=== PATIENT | male | born 1960 | race African-American/Black ===

== ENCOUNTER 2017-12-02 22:23 | Emergency (ER) | payer SELFPAY ==
[~2017-12-02] VITALS: Ht 170.2 cm; Wt 86.2 kg
[2017-12-02] MEDS ORDERED: METFORMIN500 M2 PO (22:44)
[2017-12-02 23:21] LABS: URINE BILIRUBIN - DIPSTICK NEGATIVE (NEGATIVE); URINE BLOOD DIPSTICK NEGATIVE (NEGATIVE); URINE COLOR YELLOW; URINE GLUCOSE - DIPSTICK >=1000 mg/dL (NEGATIVE); URINE KETONE NEGATIVE (NEGATIVE); URINE LEUK ESTERASE NEGATIVE (NEGATIVE); URINE NITRITE - DIPSTICK NEGATIVE (Negative); URINE PH 5.5 (4.5-8.0); URINE PROTEIN - DIPSTICK NEGATIVE (NEG-TRACE); URINE SPECIFIC GRAVITY <=1.005; URINE UROBILINOGEN - DIPSTICK 0.2 E.U./dL (0.2)
[2017-12-02 23:22] LABS: URINE CLARITY CLEAR
[2017-12-02] MEDS ORDERED: AMOXICILLIN/PO500 MG PO (23:32)
[2017-12-02] MEDS ORDERED: ANTI-FUNGAL12 EX (23:32)
[2017-12-03 00:10] VITALS: BP 135/89
== END 2017-12-03 00:12 | disposition home or self-care (01) | DRG 728 ==
LOC: ED 22:23
PROVIDERS: Emergency Medicine
DX: N48.1 Balanitis (principal); E11.9 Type 2 diabetes mellitus without complications; I10 Essential (primary) hypertension